=== PATIENT | male | born 1955 | race Caucasian/White ===

== ENCOUNTER 2021-01-05 16:22 | Inpatient (IN) | payer MEDICARE ==
[~2021-01-05] VITALS: Ht 185.4 cm; Wt 140.6 kg
[2021-01-05 16:28] VITALS: BP 130/82
[2021-01-05 17:07] LABS: ABSOLUTE LYMPHOCYTES 1.2 thou/uL (0.8-5.3); ABSOLUTE MONOCYTES 0.7 thou/uL (0.0-1.2); ABSOLUTE NEUTROPHILS 5.4 thou/uL (1.6-8.1); BASOPHILS 0.6 %; HEMATOCRIT 42.7 % (42.0-52.0); HEMOGLOBIN 14.5 gm/dL (14.0-18.0); MCH 30.5 pg (26.0-34.0); MCV 89.8 fL (80.0-100.0); MONOCYTES 9.5 %; MPV 8.6 fl. (7.2-11.1); NUCLEATED RBCS 0 /100WBC; PLATELET COUNT* 228 thou/uL (150-400); POLYS 73.9 %; RBC 4.76 mil/uL (4.50-6.00); RDW-CV 14.3 % (10.5-14.5); WBC 7.3 thou/uL (4.0-11.0)
[2021-01-05 17:18] LABS: CALCIUM 7.5 mg/dL (8.5-10.1); CREATININE 1.1 mg/dL (0.6-1.3); POTASSIUM 3.7 mmol/L (3.5-5.1)
[2021-01-05 17:28] LABS: ALBUMIN 3.3 g/dL (3.4-5.0); TOTAL BILIRUBIN 0.6 mg/dL (<0.1-1.0)
[2021-01-05 20:05] VITALS: BP 152/91
[2021-01-05 20:25] VITALS: BP 138/88
[2021-01-05] MEDS ORDERED: INDOMETHACIN1 MG (22:25)
[2021-01-06] VITALS: BP 129/64
[2021-01-06 04:00] VITALS: BP 130/57
[2021-01-06 08:08] VITALS: BP 124/73
--- NOTE | 2021-01-06 10:41 | EKG ---
[place] [address] ELECTROCARDIOGRAM REPORT Name: ROBBIN TREVIZO Room: [address] ADM IN .R.#: [id number] Admission: 01/05/21 Attend Phys: Robbin Godoy Discharge: Date of : 51 Date of Service: 01/05/21 1645 Report #: [id number] THIS REPORT FOR: //name// [facility] ED Test Date: 2021-01-05 Test Time: 16:45:09 Pat Name: ROBBIN TREVIZO Department: Room: [facility] Gender: M Manager Mobile: RAUL : 1955 Requested By: Al Pleitez Order Number: [id number] MD: Kashif Conroy Measurements Intervals Neche Rate: 80 P: 16 SC: 116 QRS: 23 QRSD: 82 T: 68 QT: 323 QTc: 373 Interpretive Statements Sinus rhythm Atrial premature complex Borderline short SC interval Abnormal R-wave progression, early transition No previous ECG available for comparison Electronically Signed On 01-06-2021 10:41:35 CDT by Kashif Conroy [email or web address] <ELECTRONICALLY SIGNED> By: Kashif Conroy MD, FAC 01/06/21 1041 1645 1645 Kashif Conroy MD, [facility] /EPI
[2021-01-06 17:05] VITALS: BP 125/74; BP 131/82; BP 142/84
[2021-01-06 20:00] VITALS: BP 148/87
[2021-01-06 23:00] LABS: MAGNESIUM 2.2 mg/dL (1.8-2.4); POTASSIUM 4.1 mmol/L (3.5-5.1)
[2021-01-06 23:27] VITALS: BP 137/86
[2021-01-07 03:30] VITALS: BP 132/82
[2021-01-07 04:14] LABS: HEMATOCRIT 43.6 % (42.0-52.0); HEMOGLOBIN 14.6 gm/dL (14.0-18.0); MCH 30.3 pg (26.0-34.0); MCHC 33.4 g/dL (28.0-37.0); MCV 90.8 fL (80.0-100.0); RBC 4.8 mil/uL (4.50-6.00); RDW-CV 14.4 % (10.5-14.5); WBC 9.1 thou/uL (4.0-11.0)
[2021-01-07 04:39] LABS: ALBUMIN 3.1 g/dL (3.4-5.0); CALCIUM 7.6 mg/dL (8.5-10.1); CREATININE 0.9 mg/dL (0.6-1.3); MAGNESIUM 2.1 mg/dL (1.8-2.4); POTASSIUM 4.2 mmol/L (3.5-5.1); TOTAL BILIRUBIN 0.3 mg/dL (<0.1-1.0)
[2021-01-07 12:00] VITALS: BP 140/77
[2021-01-07 19:48] VITALS: BP 133/72
[2021-01-07 23:55] VITALS: BP 143/78
[2021-01-08 04:00] VITALS: BP 114/59
[2021-01-08 04:37] LABS: HEMATOCRIT 44.8 % (42.0-52.0); HEMOGLOBIN 14.9 gm/dL (14.0-18.0); MCH 30.6 pg (26.0-34.0); MCHC 33.2 g/dL (28.0-37.0); MPV 9.3 fl. (7.2-11.1); RBC 4.88 mil/uL (4.50-6.00); RDW-CV 14.7 % (10.5-14.5); WBC 10.1 thou/uL (4.0-11.0)
[2021-01-08 05:12] LABS: ALBUMIN 3.2 g/dL (3.4-5.0); CALCIUM 7.6 mg/dL (8.5-10.1); CREATININE 1.1 mg/dL (0.6-1.3); MAGNESIUM 2.1 mg/dL (1.8-2.4); POTASSIUM 3.9 mmol/L (3.5-5.1); TOTAL BILIRUBIN 0.3 mg/dL (<0.1-1.0)
[2021-01-08 08:00] VITALS: BP 140/86
[2021-01-08 11:39] VITALS: BP 142/76
--- NOTE | 2021-01-08 12:22 | CON ---
[address] [address] CONSULTATION Name: LEONIE TREVIZO Mari Room: [address] IN M.R.#: [id number] Admission: 01/05/21 Attend Phys: Emily Kan Discharge: Date of : 51 Report #: [id number] THIS REPORT FOR: cc: Bernardo Adam MD, Gary E. MD Pervez, Adeel MD ~ DATE OF CONSULTATION: 01/07/2021 REQUESTING PHYSICIAN: Dr. Angelo. INDICATION FOR CONSULTATION: COVID-19. 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 He follows with Dr. Gutierrez, a history tutor who works out of [facility]. He is on a weekly Prolastin infusions. He also does have a history of morbid obesity. His body mass index is 41. The patient is now admitted 2 days ago. Presentation is with increasing shortness of breath and cough with clear sputum production. He has also had a fever for 3-4 days. The patient reports that he already had started doxycycline and prednisone prior to this admission. He has had some disturbed sleep at night as well as sleepiness during the day. These complaints are better with the use of a CPAP. REVIEW OF SYSTEMS: For 12 points is negative except as mentioned above. He has not been vaccinated for COVID-19. PAST MEDICAL HISTORY: Alpha-1 antitrypsin deficiency, leading to COPD. It appears that he has been prescribed inhalers for COPD; however, he does not take any regularly. Morbid obesity, body mass index 41. Obstructive sleep apnea. He does use a CPAP at home. Gout. There is a mild elevation in his LFTs. I do not have any baseline LFTs available; therefore, unable to state if this is longstanding. SOCIAL HISTORY: Lifetime nonsmoker. No known history of heavy alcohol use or illegal drug use. CURRENT MEDICATIONS: List in [facility] reviewed. HOME MEDICATIONS: List also in the records reviewed. ALLERGIES: HE REPORTS AN ALLERGY TO PENICILLIN; however, he tolerates cephalosporins without problems. THERE IS ALSO A SHELLFISH ALLERGY LISTED. Note that, he has tolerated IV dye administration today; however, [place] [address] CONSULTATION Name: LEONIE TREVIZO Room: [address]#: [id number] Admission: 01/05/21 Attend Phys: Emily Kan Discharge: Date of : 51 Report #: [id number] dexamethasone and he did also receive 2 additional doses of Solu-Medrol, 32 mg before dye administration. IMMUNIZATION HISTORY: Has not been vaccinated for COVID-19. FAMILY HISTORY: There is no pertinent family history. PHYSICAL EXAMINATION: GENERAL: He is alert, awake and oriented, does not appear to be in any distress at this time. VITAL SIGNS: Pulse of 67 and a blood pressure of 140/77, he is saturating 92%. He is on 2 liters nasal cannula. His respiratory rate is 18-20. He is afebrile, heart rate is 67. HEENT: Head is normocephalic and atraumatic. NECK: Does not show raised JVP. CHEST: Breath sounds are bilaterally equal, but decreased. I do not hear any added sounds. HEART: Regular. There is no murmur. ABDOMEN: Soft and nontender. EXTREMITIES: Lower extremities show no edema and no calf tenderness. SKIN: Dry and intact. NEUROLOGIC: Moves all extremities bilaterally equally and spontaneously with no focal deficit identified. His venous Dopplers are negative and a CT chest shows atypical infiltrates consistent with COVID-19 or atypical infection. There are no pulmonary emboli. LABORATORY DATA: Which [facility] There is mild hyperglycemia noted as well. Sodium is towards the higher end of normal range at 142. ASSESSMENT AND PLAN: 1. Acute hypoxemic respiratory failure secondary to COVID-19. He is only requiring 2 liters of oxygen at this time. We will continue to titrate oxygen. He does have sleep apnea and is using his own CPAP and I agree with the same. Recommend avoiding sleeping supine. He already is doing so. Out of bed to chair as tolerated. 2. COVID-19, agree with dexamethasone as currently prescribed. Also, note that his liver function tests are elevated; however, I feel that the benefit of giving him remdesivir still outweighs the risks and I would continue as currently ordered, but I would recommend daily liver function tests to follow trend. He has also received Actemra and 1 unit of convalescent plasma. 3. Pulmonary infiltrates. He is on doxycycline as well as ceftriaxone. For now, he will continue with the same. If he continues to do well, doxycycline could be switched over to p.o. soon. Note that, he was already on doxycycline [address] [address] CONSULTATION Name: LEONIE TREVIZO Room: [address] IN [facility].#: [id number] Admission: 01/05/21 Attend Phys: Emily Kan Discharge: Date of : 51 Report #: [id number] before getting admitted here. 4. Alpha-1 antitrypsin deficiency, leading to chronic obstructive pulmonary disease. From what the patient is describing, it appears to me that he has been prescribed inhalers for chronic obstructive pulmonary disease most recently. He states that Dr. Gutierrezprescribed Bevespi for him; however, he is not using it and he is only using p.r.n. albuterol. At this time, I would go ahead and order DuoNeb. He already is on dexamethasone for COVID-19. 5. Elevated liver function tests. I do not have baseline available; therefore, not defined as to whether this is longstanding secondary to alpha-1 antitrypsin deficiency or acute. We will follow liver function tests. Would also check a lipase level. 6. Obstructive sleep apnea. Continue home CPAP. 7. Hyperglycemia. He is on insulin sliding scale. I agree with the same. I did order a carb-controlled diet as well as sodium was also towards the upper end of the normal range. Therefore, I ordered a low sodium diet in order to avoid a propensity to develop fluid overload while he has COVID. 8. Deep vein thrombosis prophylaxis. I will increase Lovenox to intermediate dose. 9. Clostridium difficile prophylaxis, Lactinex. 10. Gastrointestinal prophylaxis, already on Protonix. Thanks for this consultation. <ELECTRONICALLY SIGNED> By: Eyad Guerin MD 01/08/21 1222 1345 MD jaylon Prakash
[2021-01-08 15:40] VITALS: BP 152/81
[2021-01-08 20:00] VITALS: BP 131/73
[2021-01-09 00:17] VITALS: BP 143/71
[2021-01-09 04:41] VITALS: BP 171/92
[2021-01-09 10:44] LABS: CALCIUM 7.7 mg/dL (8.5-10.1); CREATININE 1.2 mg/dL (0.6-1.3); POTASSIUM 3.5 mmol/L (3.5-5.1); TOTAL BILIRUBIN 0.3 mg/dL (<0.1-1.0); TOTAL PROTEIN 6.3 g/dL (6.4-8.2)
[2021-01-09 12:00] VITALS: BP 158/96
[2021-01-09 16:00] VITALS: BP 124/81
[2021-01-09 20:30] VITALS: BP 135/83
[2021-01-10] VITALS: BP 138/66
[2021-01-10 04:07] LABS: HEMATOCRIT 43.1 % (42.0-52.0); HEMOGLOBIN 14.5 gm/dL (14.0-18.0); MCH 30.2 pg (26.0-34.0); MCHC 33.7 g/dL (28.0-37.0); MCV 89.8 fL (80.0-100.0); MPV 8.7 fl. (7.2-11.1); NUCLEATED RBCS 0 /100WBC; PLATELET COUNT* 332 thou/uL (150-400); RDW-CV 14.4 % (10.5-14.5); WBC 10.6 thou/uL (4.0-11.0)
[2021-01-10 04:15] VITALS: BP 124/62
[2021-01-10 04:29] LABS: CREATININE 1.1 mg/dL (0.6-1.3); PHOSPHORUS* 3.6 mg/dL (2.5-4.9); POTASSIUM 4.4 mmol/L (3.5-5.1); TOTAL BILIRUBIN 0.3 mg/dL (<0.1-1.0); TOTAL PROTEIN 6.3 g/dL (6.4-8.2)
[2021-01-10 05:37] LABS: ABSOLUTE LYMPHOCYTES 0.7 thou/uL (0.8-5.3); ABSOLUTE MONOCYTES 0.4 thou/uL (0.0-1.2); ABSOLUTE NEUTROPHILS 9.4 thou/uL (1.6-8.1); PLATELET ESTIMATE ADEQUATE
[2021-01-10 08:30] VITALS: BP 112/71
[2021-01-10] MEDS ORDERED: DOXYCYCLINE 10100 MG PO (12:13)
[2021-01-10] MEDS ORDERED: PROTONIX40 M4 PO (12:17)
[2021-01-10] MEDS ORDERED: PROAIR HFA8.5 GM INH (12:17)
[2021-01-10] MEDS ORDERED: DEXAMETHASONE1 MG PO (12:17)
[2021-01-10 16:00] VITALS: BP 105/59
[2021-01-10 21:01] VITALS: BP 121/70
[2021-01-11 00:20] VITALS: BP 127/67
[2021-01-11 03:48] LABS: ABSOLUTE LYMPHOCYTES 0.9 thou/uL (0.8-5.3); ABSOLUTE MONOCYTES 0.7 thou/uL (0.0-1.2); ABSOLUTE NEUTROPHILS 11.8 thou/uL (1.6-8.1); BASOPHILS 0.1 %; EOSINOPHILS 0.1 %; HEMATOCRIT 45.8 % (42.0-52.0); HEMOGLOBIN 15.4 gm/dL (14.0-18.0); LYMPHOCYTES 6.7 %; MCH 30.2 pg (26.0-34.0); MCHC 33.7 g/dL (28.0-37.0); MCV 89.7 fL (80.0-100.0); MPV 8.5 fl. (7.2-11.1); NUCLEATED RBCS 0 /100WBC; PLATELET COUNT* 382 thou/uL (150-400); POLYS 88.1 %; RBC 5.11 mil/uL (4.50-6.00); RDW-CV 14.6 % (10.5-14.5); WBC 13.4 thou/uL (4.0-11.0)
[2021-01-11 04:06] LABS: ALBUMIN 3.2 g/dL (3.4-5.0); CALCIUM 8.3 mg/dL (8.5-10.1); CREATININE 1.1 mg/dL (0.6-1.3); MAGNESIUM 1.9 mg/dL (1.8-2.4); POTASSIUM 4.5 mmol/L (3.5-5.1); TOTAL BILIRUBIN 0.5 mg/dL (<0.1-1.0); TOTAL PROTEIN 6.6 g/dL (6.4-8.2)
[2021-01-11 04:33] VITALS: BP 90/50
[2021-01-11 08:00] VITALS: BP 133/83
[2021-01-11 14:22] VITALS: BP 100/57
[2021-01-11 16:00] VITALS: BP 122/71
[2021-01-11 20:24] VITALS: BP 131/75
[2021-01-12 00:12] VITALS: BP 119/24
[2021-01-12 04:12] LABS: ABSOLUTE MONOCYTES 0.7 thou/uL (0.0-1.2); ABSOLUTE NEUTROPHILS 14.2 thou/uL (1.6-8.1); BASOPHILS 0.1 %; EOSINOPHILS 0.1 %; HEMOGLOBIN 15.5 gm/dL (14.0-18.0); LYMPHOCYTES 6.2 %; MCH 30.4 pg (26.0-34.0); MCHC 33.7 g/dL (28.0-37.0); MCV 90.3 fL (80.0-100.0); MONOCYTES 4.5 %; MPV 8.8 fl. (7.2-11.1); NUCLEATED RBCS 0 /100WBC; PLATELET COUNT* 398 thou/uL (150-400); POLYS 89.1 %; RBC 5.09 mil/uL (4.50-6.00); RDW-CV 14.7 % (10.5-14.5); WBC 15.9 thou/uL (4.0-11.0)
[2021-01-12 04:29] VITALS: BP 115/56
[2021-01-12 04:31] LABS: ALBUMIN 3.1 g/dL (3.4-5.0); CALCIUM 8.2 mg/dL (8.5-10.1); CREATININE 1.1 mg/dL (0.6-1.3); MAGNESIUM 2.1 mg/dL (1.8-2.4); POTASSIUM 4.4 mmol/L (3.5-5.1); TOTAL BILIRUBIN 0.5 mg/dL (<0.1-1.0); TOTAL PROTEIN 6.4 g/dL (6.4-8.2)
[2021-01-12 08:00] VITALS: BP 116/67
[2021-01-12 12:00] VITALS: BP 111/73
[2021-01-12 16:40] VITALS: BP 105/66
[2021-01-12 19:50] VITALS: BP 101/64
[2021-01-13 03:32] VITALS: BP 94/42
[2021-01-13 03:47] LABS: ABSOLUTE MONOCYTES 0.7 thou/uL (0.0-1.2); ABSOLUTE NEUTROPHILS 15.7 thou/uL (1.6-8.1); BASOPHILS 0.1 %; EOSINOPHILS 0.1 %; HEMATOCRIT 45.3 % (42.0-52.0); LYMPHOCYTES 5.6 %; MCH 29.9 pg (26.0-34.0); MCHC 33.2 g/dL (28.0-37.0); MCV 90.1 fL (80.0-100.0); MONOCYTES 3.9 %; MPV 8.9 fl. (7.2-11.1); NUCLEATED RBCS 0 /100WBC; PLATELET COUNT* 416 thou/uL (150-400); POLYS 90.3 %; RBC 5.03 mil/uL (4.50-6.00); RDW-CV 14.4 % (10.5-14.5); WBC 17.4 thou/uL (4.0-11.0)
[2021-01-13 04:02] LABS: CALCIUM 8.4 mg/dL (8.5-10.1); CREATININE 1.2 mg/dL (0.6-1.3); MAGNESIUM 2.1 mg/dL (1.8-2.4); POTASSIUM 4.6 mmol/L (3.5-5.1); TOTAL BILIRUBIN 0.5 mg/dL (<0.1-1.0); TOTAL PROTEIN 6.1 g/dL (6.4-8.2)
[2021-01-13 09:00] VITALS: BP 114/75
[2021-01-13 12:12] VITALS: BP 126/83
[2021-01-13 15:37] VITALS: BP 126/83
[2021-01-13 18:21] VITALS: BP 126/83
== END 2021-01-13 16:06 | disposition home health service (06) | DRG 177 ==
LOC: M.ERS 16:22 → M.TBA-ER 18:06 → M.ORTHSURG 18:06
PROVIDERS: Family Medicine; Internal Medicine; Internal Medicine Critical Care Medicine; ADMIT Internal Medicine; ATTEND Internal Medicine
PROC: XW13325 Transfusion of Convalescent Plasma (Nonautologous) into Peripheral Vein, Percutaneous Approach, New Technology Group 5 (ICD-10-PCS; principal; 2021-01-06)
PROC: XW033E5 Introduction of Remdesivir Anti-infective into Peripheral Vein, Percutaneous Approach, New Technology Group 5 (ICD-10-PCS; 2021-01-07)
PROC: 5A09357 Assistance with Respiratory Ventilation, Less than 24 Consecutive Hours, Continuous Positive Airway Pressure (ICD-10-PCS; 2021-01-10)
PROC: 5A09357 Assistance with Respiratory Ventilation, Less than 24 Consecutive Hours, Continuous Positive Airway Pressure (ICD-10-PCS; 2021-01-11)
PROC: 5A0935A Assistance with Respiratory Ventilation, Less than 24 Consecutive Hours, High Flow/Velocity Cannula (ICD-10-PCS; 2021-01-11)
PROC: 5A09357 Assistance with Respiratory Ventilation, Less than 24 Consecutive Hours, Continuous Positive Airway Pressure (ICD-10-PCS; 2021-01-12)
PROC: 5A0935A Assistance with Respiratory Ventilation, Less than 24 Consecutive Hours, High Flow/Velocity Cannula (ICD-10-PCS; 2021-01-12)
PROC: 5A09357 Assistance with Respiratory Ventilation, Less than 24 Consecutive Hours, Continuous Positive Airway Pressure (ICD-10-PCS; 2021-01-13)
DX: U07.1 COVID-19 (principal); J96.01 Acute respiratory failure with hypoxia; J12.82 Pneumonia due to coronavirus disease 2019; I47.2 Ventricular tachycardia; Z79.899 Other long term (current) drug therapy; M10.9 Gout, unspecified; G47.33 Obstructive sleep apnea (adult) (pediatric); Z88.0 Allergy status to penicillin; Z91.013 Allergy to seafood; J44.9 Chronic obstructive pulmonary disease, unspecified; E88.01 Alpha-1-antitrypsin deficiency; R73.9 Hyperglycemia, unspecified